=== PATIENT | male | born 1965 | race Caucasian/White ===

== ENCOUNTER 2016-12-04 16:13 | Emergency (ER) | payer SELFPAY ==
[2016-12-04] MEDS ORDERED: Adacel (T-DAP) 0.5 ML VIAL ONE (17:07)
[2016-12-04] MEDS ORDERED: Sulfameth/Trimethoprim DS 800-160mg TAB ONE (17:07)
== END 2016-12-04 17:28 | disposition home or self-care (01) ==
LOC: BURERS 16:13
DX: L02.31 Cutaneous abscess of buttock (principal); F17.210 Nicotine dependence, cigarettes, uncomplicated
CPT/HCPCS: 10060; 87070; 87077; 87186; 87205; 90471; 90715